=== PATIENT | female | born 1980 | race Two or more races ===

== ENCOUNTER 2019-12-29 11:04 | Outpatient (CLI) | payer OTHER | END 2019-12-29 11:13 | disposition home or self-care (01) | LOC: RAD 11:04 | PROVIDERS: ATTEND Physical Medicine & Rehabilitation | DX: M41.24 Other idiopathic scoliosis, thoracic region (principal); M54.6 Pain in thoracic spine; M54.2 Cervicalgia ==

== ENCOUNTER 2022-04-02 07:55 | Emergency (ER) | payer OTHER ==
[~2022-04-02] VITALS: Ht 152.4 cm; Wt 104.3 kg
[2022-04-02] MEDS ORDERED: METFORMIN HCL500 M3 PO (08:38)
[2022-04-02] MEDS ORDERED: HYDRODIURIL12.5 MG PO (08:39)
[2022-04-02] MEDS ORDERED: AVAPRO75 MG PO (08:39)
[2022-04-02] MEDS ORDERED: TOPROL XL50 M1 PO (08:40)
[2022-04-02] MEDS ORDERED: DICLOFENAC SODI75 MG PO (08:42)
[2022-04-02] MEDS ORDERED: METAXALONE800 MG PO (08:42)
[2022-04-02] MEDS ORDERED: GRALISE600 MG PO (08:43)
[2022-04-02] MEDS ORDERED: METRONIDAZOLE500 MG PO (10:24)
[2022-04-02] MEDS ORDERED: CIPRO500 MG PO (10:24)
== END 2022-04-02 12:15 | disposition home or self-care (01) ==
LOC: ER 07:55
DX: N76.4 Abscess of vulva (principal); E11.9 Type 2 diabetes mellitus without complications; Z79.84 Long term (current) use of oral hypoglycemic drugs; I10 Essential (primary) hypertension; N76.0 Acute vaginitis

== ENCOUNTER 2023-06-01 15:50 | Outpatient (CLI) | payer OTHER ==
[~2023-06-01 15:50] MED LIST: AVAPRO75 MG PO; CIPRO500 MG PO; DICLOFENAC SODI75 MG PO; GRALISE600 MG PO; HYDRODIURIL12.5 MG PO; METAXALONE800 MG PO; METFORMIN HCL500 M3 PO; METRONIDAZOLE500 MG PO; TOPROL XL50 M1 PO
== END 2023-06-01 15:58 | disposition home or self-care (01) ==
LOC: RAD 15:50
PROVIDERS: ATTEND Physical Medicine & Rehabilitation
DX: M25.512 Pain in left shoulder (principal)

== ENCOUNTER 2023-06-05 09:23 | Outpatient (CLI) | payer OTHER | END 2023-06-05 09:36 | disposition home or self-care (01) | LOC: SONOGRAMA 09:23 | PROVIDERS: ATTEND Physical Medicine & Rehabilitation | DX: M25.512 Pain in left shoulder (principal) ==